=== PATIENT | female | born 2000 | race African-American/Black ===

== ENCOUNTER 2025-02-02 17:54 | Emergency (ER) | payer BC ==
[~2025-02-02] VITALS: Ht 180.3 cm; Wt 67.0 kg
[2025-02-02 18:03] VITALS: O2SAT 98
[2025-02-02] MEDS: BACITRACIN ZINC OINT UDPKT TOP ONE (19:50)
[2025-02-02] MEDS ORDERED: IBUP-2028 MT (19:55)
[2025-02-02] MEDS: TETANUS, DIPHTHERIA, PERTUSSIS VAC/PF 0.5ML (>10YR OLD) IM ONE (20:25)
[2025-02-02] MEDS: IBUPROFEN 400MG TABLET PO ONE (20:25)
[2025-02-02] MEDS: ACETAMINOPHEN 500MG TABLET PO ONE (20:26)
[2025-02-02 20:59] VITALS: BP 120/63; PULSE 87; RESP 19; TEMP 36.8; O2SAT 99
== END 2025-02-02 21:25 | disposition home or self-care (01) ==
LOC: ER 17:54
DX: S00.211A Abrasion of right eyelid and periocular area, initial encounter (principal); S09.90XA Unspecified injury of head, initial encounter; J45.909 Unspecified asthma, uncomplicated; Z79.899 Other long term (current) drug therapy; Y08.89XA Assault by other specified means, initial encounter; Y93.89 Activity, other specified; Y92.89 Other specified places as the place of occurrence of the external cause; Y99.8 Other external cause status
CPT/HCPCS: 81025; 70450; 70490; 90715; 90471; 99285; Z7610 ×3